=== PATIENT | female | born 1955 | race Caucasian/White ===

== ENCOUNTER 2021-03-07 09:43 | Emergency (ER) | payer OTHER ==
[~2021-03-07] VITALS: Ht 157.5 cm; Wt 61.2 kg
[2021-03-07] MEDS ORDERED: LOSARTAN-HCTZ1 EACH PO (09:59)
[2021-03-07] MEDS ORDERED: SAVELLA1 EACH PO (10:00)
== END 2021-03-07 12:47 | disposition home or self-care (01) ==
LOC: ER 09:43
DX: N20.0 Calculus of kidney (principal); N39.0 Urinary tract infection, site not specified

== ENCOUNTER 2021-07-24 08:00 | Outpatient (CLI) | payer OTHER ==
[~2021-07-24 08:00] MED LIST: LOSARTAN-HCTZ1 EACH PO; SAVELLA1 EACH PO
== END 2021-07-24 08:30 | disposition home or self-care (01) ==
LOC: PPH VACUNA 08:00
DX: Z23 Encounter for immunization (principal)

== ENCOUNTER 2022-03-05 09:00 | Outpatient (CLI) | payer OTHER | END 2022-03-05 09:15 | disposition home or self-care (01) | LOC: PPH VACUNA 09:00 | PROVIDERS: ATTEND Emergency Medicine Pediatric Emergency Medicine | DX: Z23 Encounter for immunization (principal) ==

== ENCOUNTER 2022-03-28 08:12 | Emergency (ER) | payer OTHER ==
[~2022-03-28] VITALS: Ht 157.5 cm; Wt 61.2 kg
[2022-03-28] MEDS ORDERED: NEURONTIN300 MG PO (08:42)
[2022-03-28] MEDS ORDERED: DICLOFENAC SOD100 GM TP (08:43)
== END 2022-03-28 12:53 | disposition home or self-care (01) ==
LOC: ER 08:12
DX: K52.9 Noninfective gastroenteritis and colitis, unspecified (principal); E86.0 Dehydration; Z88.8 Allergy status to other drugs, medicaments and biological substances; I10 Essential (primary) hypertension; M19.90 Unspecified osteoarthritis, unspecified site; Z91.013 Allergy to seafood